=== PATIENT | female | born 1985 | race Two or more races ===

== ENCOUNTER 2017-11-19 05:22 | Inpatient (IN) | payer OTHER ==
[~2017-11-19] VITALS: Ht 165.1 cm; Wt 93.3 kg
[~2017-11-19 05:22] MED LIST: PRENAT PO
[2017-11-19 05:26] VITALS: BMI 34.2
[2017-11-19] MEDS ORDERED: LACTATED RINGER'S 1,000 ML IV SCH (06:23)
[2017-11-19] MEDS ORDERED: OXYTOCIN 30 UNITS/LR 500 ML IV SCH ×4 (06:30→07:00)
[2017-11-19] MEDS ORDERED: MISOPROSTOL 200 MCG TAB PR PRN ×3 (06:30→08:30)
[2017-11-19] MEDS ORDERED: OXYTOCIN 30 UNITS/LR 500 ML IV PRN ×2 (06:30)
[2017-11-19] MEDS ORDERED: CARBOPROST 250 MCG INJ IM PRN ×2 (06:30)
[2017-11-19] MEDS ORDERED: CEFAZOLIN 2 GM/50 ML (PMX) 50 ML IV SCH (06:30)
[2017-11-19] MEDS ORDERED: METHYLERGONOVINE 0.2 MG INJ IM PRN ×2 (06:30)
[2017-11-19] MEDS ORDERED: LIDOCAINE 1% (MPF) 30 ML INJ INJ PRN (06:30)
[2017-11-19 06:40] LABS: BASOPHIL # 0.1 10^3/ul (0.0-0.1); BASOPHILS % 0.5 % (0.0-2.0); EOSINOPHILS # 0.1 10^3/ul (0.0-0.5); EOSINOPHILS % 0.8 % (0.0-7.0); HEMOGLOBIN 11.9 g/dl (12.0-16.0); LYMPHOCYTES # 1.6 10^3/ul (0.8-2.9); LYMPHOCYTES % 16.3 % (15.0-51.0); MEAN CORPUSCULAR HEMOGLOBIN 30.1 pg (29.0-33.0); MEAN CORPUSCULAR HGB CONC 33.1 g/dl (32.0-37.0); MEAN CORPUSCULAR VOLUME 91.1 fl (82.0-101.0); MONOCYTES % 9.7 % (0.0-11.0); NEUTROPHIL # 6.9 10^3/ul (1.6-7.5); NEUTROPHILS % 69.5 % (39.0-77.0); PLATELET COUNT 115 10^3/UL (140-415); RED BLOOD COUNT 3.95 10^6/ul (4.20-5.40); RED CELL DISTRIBUTION WIDTH 13.9 % (11.5-14.5); WHITE BLOOD COUNT 9.9 10^3/ul (4.8-10.8)
[2017-11-19] MEDS: LACTATED RINGER'S 1,000 ML IV SCH ×5 (06:46→18:40)
[2017-11-19 06:47] VITALS: BP 112/76; PULSE 82; RESP 16; Ht 165.1 cm; Wt 93.3 kg
[2017-11-19 06:47] LABS: INR 1.02; PROTIME 13.5 Sec (11.9-14.9); PT RATIO 1.1
[2017-11-19 06:48] LABS: PARTIAL THROMBOPLASTIN TIME 28.6 Sec (25.0-35.0)
[2017-11-19] MEDS ORDERED: METOCLOPRAMIDE 10 MG INJ ONE (07:29)
[2017-11-19] MEDS ORDERED: morphine SULFATE/PF (10 MG/10 ML) INJ ONE (07:29)
[2017-11-19] MEDS ORDERED: ONDANSETRON 4 MG INJ ONE (07:29)
[2017-11-19] MEDS ORDERED: KETOROLAC 30 MG INJ ONE (07:30)
[2017-11-19] MEDS ORDERED: CITRIC ACID/SODIUM CITRATE 15 ML CUP ONE (07:39)
[2017-11-19] MEDS ORDERED: CITRIC ACID/SODIUM CITRATE 15 ML CUP PO ONE (08:00)
--- NOTE | 2017-11-19 08:04 | HP ---
Date/Time of Note Date/Time of Note DATE: 11/19/17 TIME: 08:01 OB - History Hx of Present Free Text/Dictation HISTORY OF PRESENT ILLNESS: 32 YO with EDC 11/26/2017 with history of previous delivery, who desires to have repeat delivery. I discussed with the patient the risks, benefits, indications, and alternatives of procedure including but not limited to risks of infection, bleeding, damage to other organs, bowel, bladder, hernia formation, scar formation, possibility of blood transfusion, possible need for emergency hysterectomy. She was allowed to ask questions. All her questions were answered. Informed consent has been obtained. Care: Good Care Ultrasounds: Normal mid trimester US Obstetrical Complications: None Medical Complications: None Past Family/Social History * Past Medical, Surgical, Family and Obstetric Histories reviewed from chart. OB Admission Exam Vital Signs Vital Signs Vital Signs Date Time Temp Pulse Resp B/P Pulse Ox O2 Delivery O2 Flow Rate FiO2 11/19/17 06:47 97.2 82 16 112/76 Physical Exam HEENT: WNL Heart: Rhythm Normal Lungs: Clear, Equal Abdomen: WNL Extremities: Normal Reflexes: Normal Last 72 hours Lab Results CBC & BMP 11/19/17 05:40 OB Assessment/Plan Other Assessment: Assessment: IUP 39 weeks h/o previous Desires repeat Other plan: Plan: Repeat Delivery YANG OCONNELL MD Nov 19, 2017 08:04
[2017-11-19] MEDS ORDERED: PHENYLephrine (100 MCG/ML) 5ML SYG ONE (08:16)
[2017-11-19] MEDS ORDERED: NA PHOSPHATE/BIPHOS 133 ML ENEMA PR PRN (08:30)
[2017-11-19] MEDS ORDERED: OXYCODONE/ACETAMINOPHEN (5/325) TAB PO PRN (08:30)
[2017-11-19] MEDS ORDERED: LANOLIN 7 GM TUBE TOP PRN (08:30)
[2017-11-19] MEDS ORDERED: FENTAnyl 50 MCG/ML VIAL ONE (08:31)
[2017-11-19] MEDS ORDERED: PROPOFOL 20 ML ONE ×2 (08:36→12:50)
[2017-11-19] MEDS: SENNA/DOCUSATE NA (8.6MG/50MG) TAB PO SCH ×2 (09:00→21:13)
--- NOTE | 2017-11-19 09:06 | OPR ---
Date/Time of Note Date/Time of Note DATE: 11/19/17 TIME: 09:00 Operative Report Procedure Date: Nov 19, 2017 Preoperative Diagnosis IUP{ 39 weeks h/o previous delivery Postoperative Diagnosis same right paratubal cyst Operation/Procedure Performed repeat delivery right paratubal cystectomy Surgeon see signature line Draw In Hand Dr. Kingston Anesthesia Type: spinal Estimated Blood Loss: other (600 ml) Transfusion none Specimen right paratubal cyst Grafts/Implants none Tubes/Drains none Complications none Pt Condition Post Procedure: stable Disposition: PACU Procedure Description The risks, benefits, indications, alternatives of procedure including, but not limited to risk of infection, bleeding, damage to other organs, bowel, bladder, hernia formation, scar formation, possibility of blood transfusions were discussed with the patient. She was allowed to ask questions. All her questions were answered. Informed consent was obtained. DESCRIPTION OF PROCEDURE: She was taken to the operating room. Spinal anesthesia was induced. She was prepped and draped in the usual sterile fashion. Surgical time out one. Anesthesia was tested to be adequate. With permission from anesthesiologist, a knife was used to make a Pfannenstiel skin incision. The incision was taken down in layers. The fascia was cut, undermined and from the underlying muscle using sharp and blunt dissection. All the bleeders were cauterized. Peritoneum was entered bluntly. A low transverse incision was developed over the uterus. Amniotic fluid was clear and adequate. A viable in vertex presentation was delivered without any difficulty. The cord was clamped and cut, handed to awaiting team. Placenta was then delivered. Uterus was exteriorized, wrapped around a moist lap. Inside uterus was cleaned using a dry lap. All residual membranes were removed. The uterine incision was then closed using #1 Monocryl in 2 layers. The uterus was inserted back inside the abdominal cavity. Irrigation was done carefully. Careful evaluation of the uterine incision revealed no further bleeding. 4 cm right paratubal cyst noted and informed verbal consent obtained to remove he cyst. cautery was used to remove the right paratubal cyst and snt to pathology. The peritoneum and rectus muscles and fascia were evaluated. All bleeders cauterized. Peritoneum was closed using 2-0 Monocryl. At this time, the count was correct. Rectus fascia was reapproximated using 2-0 Monocryl. Rectus fascia was closed using #1 Vicryl. Subcutaneous tissue was cleaned and irrigated. All bleeders cauterized and the skin closed using Insorb. All counts correct. YANG OCONNELL MD Nov 19, 2017 09:06
[2017-11-19] MEDS ORDERED: DIPHENHYDRAMINE 50 MG INJ ONE (09:09)
[2017-11-19] MEDS ORDERED: morphine 4 MG/ML VIAL IV PRN (09:30)
[2017-11-19] MEDS ORDERED: morphine 2 MG INJ IV PRN ×2 (09:30)
[2017-11-19] MEDS ORDERED: ONDANSETRON 4 MG INJ IV PRN ×2 (09:30)
[2017-11-19] MEDS ORDERED: KETOROLAC 30 MG INJ IV PRN (09:30)
[2017-11-19] MEDS ORDERED: morphine (1 MG/ML) 10ML SYRINGE IV PRN ×3 (09:30)
[2017-11-19] MEDS ORDERED: NALBUPHINE HCL (10 MG/1 ML) INJ IV PRN (09:30)
[2017-11-19] MEDS ORDERED: DIPHENHYDRAMINE 50 MG INJ IV PRN (09:30)
[2017-11-19] MEDS ORDERED: NALOXONE (0.4 MG/ML) INJ IV PRN (09:30)
[2017-11-19 11:35] VITALS: BP_SYST 104; BP_SYST 110; BP_DIAS 52; BP_DIAS 58; PULSE 78; PULSE 79; RESP 18
[2017-11-19 14:30] VITALS: BP 104/52; PULSE 79; RESP 18
[2017-11-19 16:00] VITALS: BP 102/51; PULSE 82; RESP 18
[2017-11-19 19:40] VITALS: BP 102/58; PULSE 86; RESP 16
[2017-11-20] VITALS: BP 98/54; PULSE 88; RESP 18
[2017-11-20] MEDS: LACTATED RINGER'S 1,000 ML IV SCH ×3 (02:09→08:04)
[2017-11-20 04:30] VITALS: BP 97/54; PULSE 80; RESP 18
[2017-11-20 08:50] VITALS: BP 103/67; PULSE 76; RESP 20
[2017-11-20] MEDS ORDERED: INFLUENZA VIRUS VACCINE 0.5 ML (DISPENSING) IM* ONE (09:00)
[2017-11-20] MEDS: SENNA/DOCUSATE NA (8.6MG/50MG) TAB PO SCH ×2 (09:01→20:53)
[2017-11-20] MEDS: OXYCODONE/ACETAMINOPHEN (5/325) TAB PO PRN ×3 (09:01→22:54)
[2017-11-20 09:04] LABS: BASOPHILS % 0.3 % (0.0-2.0); EOSINOPHILS # 0.1 10^3/ul (0.0-0.5); EOSINOPHILS % 0.8 % (0.0-7.0); HEMATOCRIT 32.1 % (37.0-47.0); HEMOGLOBIN 10.7 g/dl (12.0-16.0); LYMPHOCYTES # 1.2 10^3/ul (0.8-2.9); LYMPHOCYTES % 8.9 % (15.0-51.0); MEAN CORPUSCULAR HEMOGLOBIN 30.7 pg (29.0-33.0); MEAN CORPUSCULAR HGB CONC 33.3 g/dl (32.0-37.0); MEAN CORPUSCULAR VOLUME 92.2 fl (82.0-101.0); MONOCYTE # 1.2 10^3/ul (0.3-0.9); MONOCYTES % 9.3 % (0.0-11.0); NEUTROPHIL # 10.3 10^3/ul (1.6-7.5); NEUTROPHILS % 79.3 % (39.0-77.0); PLATELET COUNT 112 10^3/UL (140-415); RED BLOOD COUNT 3.48 10^6/ul (4.20-5.40); WHITE BLOOD COUNT 12.9 10^3/ul (4.8-10.8)
--- NOTE | 2017-11-20 12:10 | PN ---
Date/Time of Note Date/Time of Note DATE: 11/20/17 TIME: 12:07 OB Subjective Subjective Subjective Complains of edema of both hands. Denies any pain or numbness. Ambualted, Not passed gas yet, Vaginal bleeding light, Tolerated regular diet. OB Objective Objective Objective GA: A&O, NAD Abdomen: soft, appropriate tenderness over the section incision Incision: Clean, dry and intact Extremities: no calf tenderness, no click, 1 + edema Lung: CTA bilaterlaly CV: RRR Hematology - 72 Hrs Test 11/19/17 05:40 11/20/17 08:40 White Blood Count 9.910^3/ul (4.8-10.8) 12.910^3/ul (4.8-10.8) #H Red Blood Count 3.9510^6/ul (4.20-5.40) #L 3.4810^6/ul (4.20-5.40) L Hemoglobin 11.9g/dl (12.0-16.0) #L 10.7g/dl (12.0-16.0) L Hematocrit 36.0% (37.0-47.0) #L 32.1% (37.0-47.0) L Mean Corpuscular Volume 91.1fl (82.0-101.0) 92.2fl (82.0-101.0) Mean Corpuscular Hemoglobin 30.1pg (29.0-33.0) 30.7pg (29.0-33.0) Mean Corpuscular Hemoglobin Concent 33.1g/dl (32.0-37.0) 33.3g/dl (32.0-37.0) Red Cell Distribution Width 13.9% (11.5-14.5) 14.0% (11.5-14.5) Platelet Count 47221^3/UL (140-415) L 84567^3/UL (140-415) L Mean Platelet Volume 12.0fl (7.4-10.4) H 12.0fl (7.4-10.4) H Neutrophils % 69.5% (39.0-77.0) 79.3% (39.0-77.0) H Lymphocytes % 16.3% (15.0-51.0) 8.9% (15.0-51.0) L Monocytes % 9.7% (0.0-11.0) 9.3% (0.0-11.0) Eosinophils % 0.8% (0.0-7.0) 0.8% (0.0-7.0) Basophils % 0.5% (0.0-2.0) 0.3% (0.0-2.0) Nucleated Red Blood Cells % 0.0/100WBC (0.0-0.0) 0.0/100WBC (0.0-0.0) Neutrophils # 6.910^3/ul (1.6-7.5) 10.310^3/ul (1.6-7.5) H Lymphocytes # 1.610^3/ul (0.8-2.9) 1.210^3/ul (0.8-2.9) Monocytes # 1.010^3/ul (0.3-0.9) H 1.210^3/ul (0.3-0.9) H Eosinophils # 0.110^3/ul (0.0-0.5) 0.110^3/ul (0.0-0.5) Basophils # 0.110^3/ul (0.0-0.1) 0.010^3/ul (0.0-0.1) Nucleated Red Blood Cells # 0.010^3/ul (0.0-0.0) 0.010^3/ul (0.0-0.0) OB Assessment/Plan Other Assessment: POD #1 S/p Repeat section Doing well Breast feeding Continue routine post op care Continue ambulation WILIAM BETTENCOURT MD Nov 20, 2017 12:10
--- NOTE | 2017-11-20 13:16 | PN ---
Date/Time of Note Date/Time of Note DATE: 11/20/17 TIME: 13:12 Assessment/Plan VTE Prophylaxis VTE Prophylaxis Intervention: ambulation Lines/Catheters IV Catheter Type (from Nrsg): Peripheral IV Subjective 24 Hr Interval Summary Free Text/Dictation Anesthesia note: A 32 year female s/p spinal duramorph pod#1 is doing fine. no heahache, itching , n/v, back pain or any sensoRy or motor deficit. back is cllean. care per surgery team Exam/Review of Systems Vital Signs Vitals Vital Signs Date Time Temp Pulse Resp B/P Pulse Ox O2 Delivery O2 Flow Rate FiO2 11/20/17 04:30 98.0 80 18 97/54 Room Air 11/20/17 00:00 94 Intake and Output 11/19/17 11/19/17 11/20/17 15:00 23:00 07:00 Intake Total 250 ml 500 ml 600 ml Output Total 1500 ml 600 ml 1500 ml Balance -1250 ml -100 ml -900 ml Results Result Diagram: 11/20/17 0840 Results 24 hrs Laboratory Tests Test 11/20/17 08:40 White Blood Count 12.9 #H Red Blood Count 3.48 L Hemoglobin 10.7 L Hematocrit 32.1 L Mean Corpuscular Volume 92.2 Mean Corpuscular Hemoglobin 30.7 Mean Corpuscular Hemoglobin Concent 33.3 Red Cell Distribution Width 14.0 Platelet Count 112 L Mean Platelet Volume 12.0 H Neutrophils % 79.3 H Lymphocytes % 8.9 L Monocytes % 9.3 Eosinophils % 0.8 Basophils % 0.3 Nucleated Red Blood Cells % 0.0 Neutrophils # 10.3 H Lymphocytes # 1.2 Monocytes # 1.2 H Eosinophils # 0.1 Basophils # 0.0 Nucleated Red Blood Cells # 0.0 Medications Medications Current Medications Cefazolin Sodium/ Dextrose (Ancef 2 Gm/50 ml (Pmx)) 50 ml @ 100 mls/hr ONCE IV ; Start 11/19/17 at 06:30 Lidocaine 30 ml 30 ml ONCE PRN INJ EPISIOTOMY/TEARING; Start 11/19/17 at 06:30 Oxytocin/Lactated Ringer's 500 ml @ 0 mls/hr ONCE PRN IV For Hemorrhage Management; Start 11/19/17 at 06:30 Methylergonovine Maleate (Methergine) 0.2 mg ONCE PRN IM VAGINAL BLEEDING; Start 11/19/17 at 06:30 Carboprost Tromethamine (Hemabate) 250 mcg ONCE PRN IM VAGINAL BLEEDING; Start 11/19/17 at 06:30 Oxycodone/ Acetaminophen (Percocet (5/ 325)) 1 tab Q4H PRN PO PAIN LEVEL 4-6; Start 11/19/17 at 08:30 Oxycodone/ Acetaminophen (Percocet (5/ 325)) 2 tab Q4H PRN PO PAIN LEVEL 7-10 Last administered on 11/20/17 09:01; Admin Dose 2 TAB; Start 11/19/17 at 08: 30 Ibuprofen (Motrin) 600 mg Q6 PO ; Start 11/20/17 at 18:00 Simethicone (Mylicon) 160 mg Q8H PRN PO DISTENSION/GAS/BLOATING Last administered on 11/20/17 09:02; Admin Dose 160 MG; Start 11/19/17 at 08:30 Senna/Docusate Sodium (Senokot-S) 1 tab BID PO Last administered on 11/20/17 09:01; Admin Dose 1 TAB; Start 11/19/17 at 09:00 Sodium Biphosphate/ Sodium Phosphate (Fleet Enema) 133 ml DAILY PRN SC CONSTIPATION; Start 11/19/17 at 08:30 Diphtheria/ Tetanus/Acell Pertussis (Adacel) 0.5 ml ONCE ONCE IM* ; Start 11/22 at 09:00; Stop 11/22/17 at 09:01 Measles/Mumps/ Rubella Vaccine Live (Mmr Ii Vaccine) 0.5 ml ONCE ONCE SC* ; Start 11/22/17 at 09:00; Stop 11/22/17 at 09:01 Misoprostol (Cytotec) 1,000 mcg ONCE PRN SC VAGINAL BLEEDING; Start 11/19/17 at 08:30 JERMAINE EVANGELISTA MD Nov 20, 2017 13:16
[2017-11-20 16:00] VITALS: BP 120/80; PULSE 84; RESP 18
[2017-11-20] MEDS: IBUPROFEN 600 MG TAB PO SCH ×2 (17:57→23:46)
[2017-11-20] MEDS ORDERED: BISACODYL 10 MG SUPP PR PRN (18:00)
[2017-11-20 20:00] VITALS: BP 120/56; PULSE 81; RESP 18
[2017-11-21 04:00] VITALS: BP 102/50; PULSE 73; RESP 18
[2017-11-21] MEDS: IBUPROFEN 600 MG TAB PO SCH ×2 (05:40→11:23)
[2017-11-21] MEDS: SENNA/DOCUSATE NA (8.6MG/50MG) TAB PO SCH (08:06)
--- NOTE | 2017-11-21 08:14 | DS ---
Date/Time of Note Date/Time of Note DATE: 11/21/17 TIME: 08:11 Obstetrical Discharge Record Final Diagnosis Final Diagnosis: Term delivered Vaginal Delivery Other Delivery information repeat delivery Section Section: Repeat Complications Augmentation: No Induction: No Condition on Discharge Physical Assessment Voiding: Yes Bowel Movement: Yes Breast: Soft, non-tender, Filling Fundus: Firm Abdomen and Incision: soft, appropriate tender. Incision is clean and dry and intact Episiotomy: NA Calf Tenderness: No Patient Condition: Good YANG OCONNELL MD Nov 21, 2017 08:14
[2017-11-21 08:50] VITALS: BP 117/70; PULSE 82; RESP 18
[2017-11-22] MEDS ORDERED: DIPHTH/TET/ACEL PERTUSS (ADULT) 0.5 ML VIAL IM* ONE (09:00)
[2017-11-22] MEDS ORDERED: MEASLES,MUMPS,RUBELLA VACCINE INJ SC* ONE (09:00)
== END 2017-11-21 16:50 | disposition home or self-care (01) | DRG 766 ==
LOC: L-D 05:22 → PP1 11:42
PROVIDERS: ADMIT Specialist; ATTEND Specialist
PROC: 0UB40ZZ Excision of Uterine Supporting Structure, Open Approach (ICD-10-PCS; 2017-11-19)
PROC: 10D00Z1 Extraction of Products of Conception, Low, Open Approach (ICD-10-PCS; principal; 2017-11-19 07:30)
PROC: 3E0234Z Introduction of Serum, Toxoid and Vaccine into Muscle, Percutaneous Approach (ICD-10-PCS; 2017-11-20)
PROC: 3E0234Z Introduction of Serum, Toxoid and Vaccine into Muscle, Percutaneous Approach (ICD-10-PCS; 2017-11-21)
DX: O34.219 Maternal care for unspecified type scar from previous cesarean delivery (principal); N83.8 Other noninflammatory disorders of ovary, fallopian tube and broad ligament; O34.83 Maternal care for other abnormalities of pelvic organs, third trimester; Z3A.39 39 weeks gestation of pregnancy; Z37.0 Single live birth; Z23 Encounter for immunization
CPT/HCPCS: 85025; 85610; 85730; 86592; 86850; 86900; 86901; 87340; 88305; 90686; 90715; 99464; J0690; J1200; J1885; J2274; J2370; J2405; J2590; J2765; J3010; J7120